=== PATIENT | female | born 1995 | race Caucasian/White ===

== ENCOUNTER 2018-05-20 22:21 | Emergency (ER) | payer MEDICAID, OTHER ==
[~2018-05-20] VITALS: Ht 165.1 cm; Wt 84.0 kg
[~2018-05-20 22:21] MED LIST: IBUP-1542 PO
[2018-05-20 22:45] VITALS: Ht 165.1 cm; Wt 84.0 kg
[2018-05-21] MEDS ORDERED: KETOROLAC 60 MG INJ IM STA (01:12)
--- NOTE | 2018-05-21 01:28 | ERD ---
ER Documentation Chief Complaint Chief Complaint HARO X 1 MONTH, NO PHOTPHOBIA, PAIN MOVES AROUND HPI 23-year-old female otherwise healthy presents with headache. She states at different times is in different places. Is been going on for over a month intermittently. No photosensitivity or visual changes. No fever or recent illness. No nausea or vomiting. No trauma. She tried taking Tylenol and Motrin which did not help. She did state Excedrin kind of helped. ROS All systems reviewed and are negative except as per history of present illness. Medications Home Meds Active Scripts Ibuprofen* (Motrin*) 600 Mg Tab, 600 MG PO Q6, #20 TAB Prov:ANGE IVERSON MD 07/11/15 Allergies Allergies: Coded Allergies: No Known Allergy (Unverified , 09/15/12) PMhx/Soc Hx Neurological Disorder: Yes (hypothyroidism) Hx Psychiatric Problems: Yes (anxiety) Hx Alcohol Use: No Hx Substance Use: No Hx Tobacco Use: No Smoking Status: Never smoker FmHx Family History: No diabetes Physical Exam Vitals Vital Signs Date Temp Pulse Resp B/P (MAP) Pulse Ox O2 O2 Flow FiO2 Time Delivery Rate 05/20/18 99.7 103 18 143/94 97 22:45 (110) Physical Exam INITIAL VITAL SIGNS: Reviewed by me GENERAL: Awake, alert and oriented x 4, well appearing, nontoxic, speaking in full sentences. No acute distress HEAD: Atraumatic NECK: Supple. No masses. Full range of motion. No meningismus. No midline tenderness. EYES: EOMI. PERRL. THROAT: No tonilar erythema or edema. No exudates. Uvula midline. No kissing tonsils. RESPIRATORY: Clear to auscultation bilaterally. Symmetric chest wall rise. No wheezing or rales. No accessory muscle use. CV: Regular rate and rhythm. No murmurs, rubs, or gallops. Neuro: M/S: Alert and oriented Face: EOMI, face and pharynx with normal sensation and function Motor: Normal strength throughout Sensation: Normal sensation throughout Speech: Normal Cerebel: Normal coordination Normal gait Normal finger to nose Results 24 hrs Laboratory Tests Test 05/21/18 01:24 POC Beta HCG, Qualitative NEGATIVE Current Medications Medications Dose Sig/Cristela Start Time Status Last (Trade) Ordered Route PRN Stop Time Admin Dose Reason Admin Ketorolac 60 mg ONCE STAT 05/21/18 DC Tromethamine IM 01:12 05/21/18 (Toradol) 01:13 Procedures/MDM The differential diagnosis includes but is not limited to subdural hematoma, epidural hematoma, intracerebral hemorrhage, occult trauma, CVA, meningitis, encephalitis, hypertension, tension, migraine, cluster, cervical spine disease, and others. Patient is young exam is normal. Patient does not wear glasses or contacts. I think she should follow-up with an police artist to see if she needs glasses or contacts. I do not believe she requires a CT scan at this time. She was given a Toradol injection and discharged with naproxen. Patient counseled regarding my diagnostic impression and care plan. Prior to discharge all questions answered. Pt agrees with treatment plan and understands strict return precautions. Pt is instructed to follow up with primary care provider within 24- 48 hours. Precautionary instructions provided including instructions to return to the ER if not improving or for any worsening or changing symptoms or concerns. Departure Diagnosis: Primary Impression: Headache Condition: Stable DELANO ORTEGA PA-C May 21, 2018 01:28
[2018-05-21] MEDS ORDERED: SUMA50TA2 PO (01:29)
[2018-05-21] MEDS ORDERED: NAPR-985 PO (01:29)
[2018-05-21 01:52] VITALS: BP 132/75; PULSE 91; RESP 19
== END 2018-05-21 01:55 | disposition home or self-care (01) ==
LOC: FTE 22:21
DX: R51 Headache (principal); E03.9 Hypothyroidism, unspecified
CPT/HCPCS: 81025; 96372; J1885; Z7502

== ENCOUNTER 2018-05-29 21:31 | Emergency (ER) | payer OTHER ==
[~2018-05-29] VITALS: Wt 84.0 kg
[~2018-05-29 21:31] MED LIST changes: +NAPR-985 PO; +SUMA50TA2 PO
[2018-05-29 21:33] VITALS: Wt 84.0 kg
[2018-05-29] MEDS ORDERED: KETOROLAC 15 MG INJ IV STA (21:54)
[2018-05-29] MEDS ORDERED: SOD CHLORIDE 0.9% 1,000 ML IV STA (21:54)
[2018-05-29] MEDS ORDERED: ACETAMINOPHEN 325 MG TAB PO STA (21:54)
[2018-05-29] MEDS ORDERED: D ME PO (22:21)
[2018-05-29] MEDS ORDERED: ACETAMINOPHEN 650MG/20.3ML CUP PO ONE (22:30)
--- NOTE | 2018-05-29 23:09 | ERD ---
ER Documentation Chief Complaint Chief Complaint COUGH/FEVER X1DAY SISTER AT HOME DX W/ FLU HPI 23-year-old female with no significant prior medical history presents the ED complaining of a 1 day history of fever, body aches and nonproductive cough. Her sister was seen in the ED yesterday and diagnosed with influenza. No headache or neck pain. Denies abdominal pain, nausea or vomiting. No dysuria, polyuria hematuria. ROS All systems reviewed and are negative except as per history of present illness. Medications Home Meds Reported Medications D-Methorphan/Pe/Acetaminophen (DAY TIME COLD-FLU LIQUID) 237 Ml Liquid, 237 ML PO 05/29/18 Discontinued Scripts Sumatriptan Succinate* (Imitrex*) 50 Mg Tablet, 50 MG PO BID PRN for MIGRAINE HEADACHE, #10 TAB May repeat after 2 hours if needed; MAX 200 mg/24 hours Prov:DELANO ORTEGA PA-C 05/21/18 Naproxen* (Naprosyn*) 500 Mg Tablet, 500 MG PO BID PRN for PAIN AND/OR INFLAMMATION, #30 TAB Prov:DELANO ORTEGA PA-C 05/21/18 Ibuprofen* (Motrin*) 600 Mg Tab, 600 MG PO Q6, #20 TAB Prov:ANGE IVERSON MD 07/11/15 Allergies Allergies: Coded Allergies: No Known Allergy (Unverified , 05/29/18) PMhx/Soc Reviewed in chart. As per HPI. History of Surgery: No Anesthesia Reaction: No Hx Neurological Disorder: Yes (hypothyroidism) Hx Respiratory Disorders: No Hx Cardiac Disorders: No Hx Psychiatric Problems: Yes (anxiety) Hx Miscellaneous Medical Probl: No Hx Alcohol Use: Yes (SOCIAL) Hx Substance Use: No Hx Tobacco Use: No Smoking Status: Never smoker FmHx No stroke or cancer Physical Exam Vitals Vital Signs Date Temp Pulse Resp B/P (MAP) Pulse Ox O2 O2 Flow FiO2 Time Delivery Rate 05/29/18 103.2 22:15 05/29/18 103.2 122 30 112/99 97 Room Air 21:45 (103) 05/29/18 104.0 137 24 137/80 96 21:33 (99) Physical Exam Const: Mild distress Head: Atraumatic Eyes: Normal Conjunctiva ENT: Normal External Ears, Nose and Mouth. Neck: Full range of motion. No meningismus. Resp: Clear to auscultation bilaterally. No rales, rhonchi or wheezes. Cardio: Tachycardic. Regular rate and rhythm, no murmurs Abd: Soft, non tender, non distended. Normal bowel sounds Skin: No petechiae or rashes Back: No midline or flank tenderness Ext: No cyanosis, or edema Neur: Awake and alert Psych: Normal Mood and Affect Results 24 hrs Laboratory Tests Test 05/29/18 21:52 05/29/18 21:53 05/29/18 21:54 POC Venous Lactate 1.2 mmol/L Bedside Urine pH (LAB) 6.0 Bedside Urine Protein (LAB) Negative Bedside Urine Glucose (UA) Negative Bedside Urine Ketones (LAB) Negative Bedside Urine Blood Trace-intact Bedside Urine Nitrite (LAB) Negative Bedside Urine Leukocyte Esterase (L 1+ POC Beta HCG, Qualitative NEGATIVE Current Medications Medications Dose Sig/Cristela Start Time Status Last (Trade) Ordered Route PRN Stop Time Admin Dose Reason Admin 650 mg ONCE STAT 05/29/18 DC Acetaminophen PO 21:54 (Tylenol 05/29/18 21:57 Tab) Ketorolac 15 mg ONCE STAT 05/29/18 DC 05/29/18 Tromethamine IV 21:54 22:05 (Toradol) 05/29/18 21:57 Sodium 1,000 ml @ Q1H STAT 05/29/18 DC 05/29/18 Chloride 1,000 mls/hr IV 21:54 22:05 05/29/18 22:53 1,000 mg ONCE ONCE 05/29/18 DC 05/29/18 Acetaminophen PO 22:30 22:15 (Tylenol 05/29/18 22:31 Liquid) Procedures/MDM DOCUMENTS REVIEWED: ED nurse, no prior records IMAGING: Chest AP portable. Cardiac silhouette is normal. The costophrenic angles are clear. No effusions or infiltrates. No abnormalities of the bony thorax. My interpretation. MEDICAL DECISION MAKIN-year-old female with no significant prior medical history presents the ED complaining of a 1 day history of fever, body aches and nonproductive cough. Patient presents with fever and influenza type symptoms. Chest x-ray negative for pneumonia. Influenza a and B is negative however his sister was seen yesterday with a similar syndrome and tested influenza positive, patient be started on Tamiflu. Stable for discharge with supportive care, antipyretics, precautionary instructions and outpatient follow-up as counseled. Counseled patient regarding diagnostic workup, diagnosis and need for followup. Understands to return to ED if symptoms recur, worsen or any other concerns. Departure Diagnosis: Primary Impression: Fever Fever type: unspecified Qualified Codes: R50.9 - Fever, unspecified Additional Impressions: Influenza-like symptoms Nonspecific syndrome suggestive of viral illness Condition: HENOK Sanchez MD May 29, 2018 23:09
[2018-05-29] MEDS ORDERED: OSELTAMIVIR 75 MG CAP PO ONE (23:30)
[2018-05-29] MEDS ORDERED: OSEL75CA23 PO (23:47)
[2018-05-30 00:31] VITALS: BP 102/57; PULSE 112; RESP 16
== END 2018-05-30 00:33 | disposition home or self-care (01) ==
LOC: E/R 21:31
DX: R50.9 Fever, unspecified (principal); R05 Cough; E03.9 Hypothyroidism, unspecified
CPT/HCPCS: 71045; 81003; 81025; 83605; 87400; 96374; J1885; J7030; Z7502; Z7610